=== PATIENT | female | born 1960 | race Caucasian/White ===

== ENCOUNTER 2023-11-14 15:39 | Emergency (ER) | payer SELFPAY ==
[2023-11-14 15:43] VITALS: BP 138/74; PULSE 75; RESP 18; TEMP 36.9; O2SAT 99; BMI 29.8
--- NOTE | 2023-11-14 16:39 | ED_ITS ---
HPI - Skin/Abscess/Foreign Bdy General Chief complaint: Skin/Abscess/Foreign Body Stated complaint: L FOOT PAIN PLANTAR WART Time Seen by Provider: 11/14/23 16:39 Source: patient Mode of arrival: Ambulatory Limitations: no limitations History of Present Illness HPI narrative: patient without any significant past medical history comes into the ED from home for evaluation of left foot pain. States that this has been ongoing and persistent for the past 2 months. States that she has not followed up with anybody due to the fact that she has not had insurance recently. She states that initially there was a wart to the bottom of her foot which did get treated by outpatient PCP previously. She states that since then she has been having pain to that area, states that it is painful enough that she is having difficulty putting weight on it but she denies any redness swelling to the area. She states that she has been trying Motrin without much relief. She is able to stand bear weight ambulate unassisted denies any other symptoms such as headache visual disturbances chest pain shortness of breath fever chills nausea vomiting abdominal pain or any other GI / symptoms at this time. Related Data Allergies Allergy/AdvReac Type Severity Reaction Status Date / Time No Known Drug Allergies Allergy Verified 11/14/23 15:54 Review of Systems Review of Systems Narrative: HEENT: Denies headache, eye drainage, eye irritation, head trauma, sore throat, voice change Cardiovascular: Denies any chest pain, palpitations, shortness of breath, tachycardia Respiratory: Denies any shortness of breath, cough, wheeze, stridor GI/: Denies any abdominal pain, nausea, vomiting, diarrhea, bright red blood per rectum, melanotic stools, urinary frequency, urinary retention, dysuria, hematuria MSK: Pain to the bottom of the left foot Skin: Denies any rashes, lesions, discoloration Neuro: Denies any headache, lightheadedness, dizziness, fainting, weakness Psych: Denies SI/HI Patient History Social History Smoking Status: Never smoker Smoking Status: Never smoker alcohol intake frequency: holidays/special occasions only Substance Use Type: does not use Exam Narrative Exam Narrative: General: Cooperative, comfortable, well-developed, not in acute distress HEENT: Normocephalic, atraumatic, PERRLA, normal sclera, eyelids normal, Neck: Active full range of motion, atraumatic Chest: Normal to inspection, negative crepitus, no overlying erythema ecchymosis Respiratory: Normal respiratory effort, not in acute respiratory distress, clear to auscultation bilaterally negative cough, wheeze, tachypnea, rhonchi, rales Cardiology: Regular rate rhythm negative gallop, murmur, rubs GI/: Normal to inspection, soft, nonrigid, no tenderness to palpation, exam deferred MSK: Full range of active range of motion of all 4 extremities, atraumatic, patient able stand bear weight ambulate unassisted here in the emergency department, patient does have calluses noted to the bottom of the foot at the area of pain. There is no erythema no crepitus no streaking no other signs of trauma. Neurovascularly intact Skin: No rashes lesions noted Neuro: Alert awake oriented x3, moves all 4 extremities spontaneously, cranial nerves intact, able to answer all questions appropriately follows commands appropriately Psych: Cooperative, negative suicidal or homicidal ideations Initial Vital Signs Initial Vital Signs: Vital Signs Temperature 98.5 F 11/14/23 15:43 Pulse Rate 75 11/14/23 15:43 Respiratory Rate 18 11/14/23 15:43 Blood Pressure 138/74 11/14/23 15:43 Pulse Oximetry 99 11/14/23 15:43 Oxygen Delivery Method Room Air 11/14/23 15:43 Course Orders Ordered: ED Orders 11/14/23 16:47 XR foot LT min 3V Stat Vital Signs Vital signs: Vital Signs - 8 hr 11/14/23 15:43 Temperature 98.5 F Pulse Rate 75 Respiratory Rate 18 Blood Pressure 138/74 Pulse Oximetry 99 Oxygen Delivery Method Room Air MDM - Skin/Abscess/Foreign Bdy Differential Diagnosis Differential diagnosis: Likely cellulitis and other ( Arthritis, ) MDM Narrative Medical decision making narrative: patient is 63-year-old female no significant past medical history comes into the ED from home for evaluation of left foot pain. States it has been ongoing and persistent for the past 2 months, states that she thought she had a wart to the plantar aspect of foot because she did get this treated previously. She has had persistent pain therefore did recommend to the ED for the evaluation treatment, she states that she does not have insurance therefore wanted to make sure nothing was wrong. X-ray only showing osteoarthritis, is able to bear weight and ambulate unassisted, physical exam is more consistent with a callus, no overlying cellulitis no other signs of trauma. Safe for discharge home with outpatient follow-up Discharge Plan Departure Patient Disposition: Home Clinical Impression: Osteoarthritis Qualifiers: Osteoarthritis location: foot Osteoarthritis type: unspecified Laterality: left Qualified Code(s): M19.072 - Primary osteoarthritis, left ankle and foot Activity Restrictions/Additional Instructions: Please read the discharge instructions sheet carefully and bring all papers to all doctor follow-up visits, as it may contain information that your doctor may want to see. Disease processes change and evolve, if your symptoms worsen or if you develop any new symptoms that are concerning to you please return for evaluation. Your evaluation today does not show any evidence of any life- threatening/serious illnesses requiring admission to the hospital or surgery. Please follow-up with your doctor for re-evaluation in approximately 1 day. Seek immediate medical attention for any worrisome symptoms. Stand Alone Forms: Patient Portal/API
--- NOTE | 2023-11-14 16:47 | DI.RAD.S_ITS ---
PROCEDURE: XR FOOT LT MIN 3V INDICATIONS: pain to plantar aspect of little toe TECHNIQUE: 3 views of the foot were acquired. COMPARISON: None. FINDINGS: Bones: Postfusion changes are noted at 1st MTP joint with surgical hardware in place. No evidence of hardware loosening or failure. Osteoarthritic changes are noted throughout left foot. Near complete bony fusion at 1st MTP joint is seen. No acute fracture or dislocation. No suspicious bony lesions. Plantar and dorsal calcaneal enthesophytes are seen. Soft tissues: No tibiotalar joint effusion. Achilles tendon appears normal. IMPRESSION: Post arthrodesis changes at 1st MTP joint. Left foot osteoarthritis. No gross hardware loosening or failure. No acute fracture or dislocation. Dictated by: Freeman Peguero M.D. on 11/14/2023 at 17:21 Approved by: Freeman Peguero M.D. on 11/14/2023 at 17:24
[2023-11-14 18:17] VITALS: BP 130/74; PULSE 70; RESP 16; TEMP 36.6; O2SAT 99
== END 2023-11-14 18:19 | disposition home or self-care (01) ==
PROVIDERS: Emergency Provider Student in an Organized Health Care Education/Training Program
DX: M19.072 Primary osteoarthritis, left ankle and foot (principal)
CPT/HCPCS: 73630; 99281; 99283